=== PATIENT | female | born 1945 | race Caucasian/White ===

== ENCOUNTER 2017-02-20 12:27 | Inpatient (IN) | payer OTHER ==
[~2017-02-20] VITALS: Ht 162.6 cm; Wt 82.6 kg
[~2017-02-20 12:27] MED LIST: AMITRIPTYLINE H25 MG PO; BENAZEPRIL HYDR20 M1 PO; CELEXA40 MG PO; CLONAZEPAM0.5 MG PO; HYDROCHLOROTHIA25 MG PO; PANTOPRAZOLE SO40 M1 PO; RANITIDINE HCL150 M1 PO; SIMVASTATIN20 M1 PO; TRAZODONE50 M1 PO
[2017-02-20 14:53] LABS: BASOPHIL % 0.4 % (0-2); PLATELET COUNT 188 x10^3mcL (130-400); RED CELL DISTRIBUTION WIDTH 13.8 % (11.5-14.5)
[2017-02-20 15:01] LABS: CALCIUM 8.5 mg/dL (8.5-10.1); CARBON DIOXIDE 31.4 mmol/L (21-32); CHLORIDE SERUM 98 mmol/L (98-107); CREATININE SERUM 0.8 mg/dL (0.6-1.0); GLUCOSE SERUM 132 mg/dL (74-106); POTASSIUM SERUM 3.5 mmol/L (3.5-5.1); SODIUM SERUM 135 mmol/L (136-145)
[2017-02-20 15:07] LABS: ALBUMIN 4.1 g/dL (3.4-5.0); ALKALINE PHOSPHATASE 95 U/L (46-116); ALT/SGPT 46 U/L (14-59); AST/SGOT 28 U/L (15-37); BILIRUBIN TOTAL 0.4 mg/dL (0.20-1.00)
[2017-02-20 15:16] LABS: LIPASE 3443 IU/L (73-393)
[2017-02-20] MEDS ORDERED: MOT600 PO (16:38)
[2017-02-20 17:22] LABS: CHOLESTEROL/HDL RATIO 3.8; MAGNESIUM 2.2 mg/dL (1.8-2.4)
[2017-02-20 17:24] LABS: T3 TOTAL 1.02 ng/mL
[2017-02-20 17:25] VITALS: BP 110/69
[2017-02-20 17:29] LABS: FREE T4 0.79 ng/dL (0.76-1.46); FREE THYROXINE INDEX 2.4 ug/dL (1.4-4.5); T4(THYROXINE) 7.9 ug/dL (4.7-13.3)
[2017-02-20 17:30] VITALS: Ht 162.6 cm; Wt 82.6 kg
[2017-02-20] MEDS ORDERED: METFORMIN HCL850 MG PO (19:41)
[2017-02-20 21:54] VITALS: BP 98/46
[2017-02-21 05:50] VITALS: BP 112/61
[2017-02-21 06:07] LABS: BASOPHIL % 0.3 % (0-2); PLATELET COUNT 158 x10^3mcL (130-400); RED CELL DISTRIBUTION WIDTH 14.1 % (11.5-14.5)
[2017-02-21 06:16] LABS: CALCIUM 7.9 mg/dL (8.5-10.1); CARBON DIOXIDE 31.3 mmol/L (21-32); CHLORIDE SERUM 98 mmol/L (98-107); CREATININE SERUM 0.7 mg/dL (0.6-1.0); GLUCOSE SERUM 129 mg/dL (74-106); PHOSPHOROUS 2.9 mg/dL (2.5-4.9); POTASSIUM SERUM 3.5 mmol/L (3.5-5.1); SODIUM SERUM 133 mmol/L (136-145)
[2017-02-21 09:25] VITALS: BP 103/61
[2017-02-21 14:24] VITALS: BP 133/70
[2017-02-21 17:27] LABS: microscopic required? YES; urine erythrocyte TRACE (NEGATIVE)
[2017-02-21 17:35] VITALS: BP 132/71
[2017-02-21 17:43] LABS: AMPHETAMINE QUAL UR NONE DETECTED (NEG <=1000)
[2017-02-21 20:40] VITALS: BP 125/70
[2017-02-22 06:18] VITALS: BP 119/53
[2017-02-22 07:13] LABS: BASOPHIL % 0.5 % (0-2); PLATELET COUNT 156 x10^3mcL (130-400)
[2017-02-22 07:33] LABS: CALCIUM 7.9 mg/dL (8.5-10.1); CARBON DIOXIDE 32.9 mmol/L (21-32); CHLORIDE SERUM 104 mmol/L (98-107); CREATININE SERUM 0.7 mg/dL (0.6-1.0); GLUCOSE SERUM 118 mg/dL (74-106); MAGNESIUM 2.1 mg/dL (1.8-2.4); PHOSPHOROUS 2.5 mg/dL (2.5-4.9); POTASSIUM SERUM 3.8 mmol/L (3.5-5.1); SODIUM SERUM 139 mmol/L (136-145)
[2017-02-22 09:07] VITALS: BP 135/73
[2017-02-22 17:30] VITALS: BP 136/79
[2017-02-22 20:25] VITALS: BP 122/67
[2017-02-23 05:11] VITALS: BP 125/63
[2017-02-23] MEDS ORDERED: LEVAQUIN750 MG PO (05:52)
[2017-02-23] MEDS ORDERED: LAC PO (05:53)
[2017-02-23 06:55] LABS: BASOPHIL % 0.4 % (0-2); PLATELET COUNT 162 x10^3mcL (130-400); RED CELL DISTRIBUTION WIDTH 13.9 % (11.5-14.5)
[2017-02-23 07:23] LABS: CALCIUM 7.6 mg/dL (8.5-10.1); CARBON DIOXIDE 31.9 mmol/L (21-32); CHLORIDE SERUM 105 mmol/L (98-107); CREATININE SERUM 0.6 mg/dL (0.6-1.0); GLUCOSE SERUM 107 mg/dL (74-106); MAGNESIUM 1.8 mg/dL (1.8-2.4); PHOSPHOROUS 2.5 mg/dL (2.5-4.9); POTASSIUM SERUM 3.7 mmol/L (3.5-5.1); SODIUM SERUM 142 mmol/L (136-145)
[2017-02-23 08:56] VITALS: BP 121/70
[2017-02-23] MEDS ORDERED: PAN PO (09:54)
[2017-02-23 11:01] VITALS: BP 121/70
== END 2017-02-23 13:34 | disposition home or self-care (01) | DRG 642 ==
LOC: ED 12:27 → MU 16:06 → DU 16:06 → MU 02-22 09:38
PROVIDERS: Emergency Medicine; Family Medicine; ADMIT Family Medicine
DX: E78.1 Pure hyperglyceridemia (principal); K85.90 Acute pancreatitis without necrosis or infection, unspecified; K86.1 Other chronic pancreatitis; E87.1 Hypo-osmolality and hyponatremia; N39.0 Urinary tract infection, site not specified; E11.65 Type 2 diabetes mellitus with hyperglycemia; E11.51 Type 2 diabetes mellitus with diabetic peripheral angiopathy without gangrene; K57.90 Diverticulosis of intestine, part unspecified, without perforation or abscess without bleeding; K75.81 Nonalcoholic steatohepatitis (NASH); K21.9 Gastro-esophageal reflux disease without esophagitis; I10 Essential (primary) hypertension; E78.5 Hyperlipidemia, unspecified; D53.9 Nutritional anemia, unspecified; F41.9 Anxiety disorder, unspecified; F32.9 Major depressive disorder, single episode, unspecified; Z79.84 Long term (current) use of oral hypoglycemic drugs; Z68.30 Body mass index [BMI] 30.0-30.9, adult; Z86.73 Personal history of transient ischemic attack (TIA), and cerebral infarction without residual deficits; Z87.891 Personal history of nicotine dependence
CPT/HCPCS: 82962; 83880; 84439; J0696; J1170; J1885; J2270; J2405; J3490; J7030; Q0092; Q0162

== ENCOUNTER 2017-10-24 16:17 | Inpatient (IN) | payer OTHER ==
[~2017-10-24] VITALS: Ht 162.6 cm; Wt 76.9 kg
[~2017-10-24 16:17] MED LIST changes: +LAC PO; +LEVAQUIN750 MG PO; +METFORMIN HCL850 MG PO; +METFORMIN850 M1 GT; +METOPROLOL TART25 M1 PO; +MOT600 PO; +PAN PO
[2017-10-24 17:07] LABS: CALCIUM 9.7 mg/dL (8.5-10.1); CARBON DIOXIDE 26.2 mmol/L (21-32); CHLORIDE SERUM 100 mmol/L (98-107); CREATININE SERUM 0.9 mg/dL (0.6-1.0); GLUCOSE SERUM 150 mg/dL (74-106); POTASSIUM SERUM 3.6 mmol/L (3.5-5.1); SODIUM SERUM 139 mmol/L (136-145)
[2017-10-24 17:08] LABS: BASOPHIL % 0.9 % (0-2); PLATELET COUNT 207 x10^3mcL (130-400)
[2017-10-24 17:13] LABS: ALBUMIN 4.8 g/dL (3.4-5.0); ALKALINE PHOSPHATASE 96 U/L (46-116); ALT/SGPT 47 U/L (14-59); AST/SGOT 38 U/L (15-37); BILIRUBIN TOTAL 0.41 mg/dL (0.20-1.00)
[2017-10-24 17:15] LABS: TOTAL PROTEIN, SERUM 8.9 g/dL (6.4-8.2)
[2017-10-24 18:22] LABS: AMYLASE 2236 U/L (25-115)
[2017-10-24 19:26] LABS: MAGNESIUM 2.2 mg/dL (1.8-2.4); PHOSPHOROUS 3.5 mg/dL (2.5-4.9)
[2017-10-24 19:36] LABS: T3 TOTAL 1.2 ng/mL
[2017-10-24 19:38] LABS: LIPASE 53873 IU/L (73-393)
[2017-10-24 19:49] LABS: CHOLESTEROL/HDL RATIO 3.2
[2017-10-24 20:01] LABS: FREE THYROXINE INDEX 2.5 ug/dL (1.4-4.5); T4(THYROXINE) 9.1 ug/dL (4.7-13.3)
[2017-10-24 20:19] VITALS: BP 171/82
[2017-10-25 05:07] VITALS: BP 140/79
[2017-10-25 05:22] LABS: BASOPHIL % 0.2 % (0-2); PLATELET COUNT 163 x10^3mcL (130-400); RED CELL DISTRIBUTION WIDTH 13.9 % (11.5-14.5)
[2017-10-25 05:34] LABS: CALCIUM 7.3 mg/dL (8.5-10.1); CARBON DIOXIDE 26.9 mmol/L (21-32); CHLORIDE SERUM 104 mmol/L (98-107); CREATININE SERUM 0.9 mg/dL (0.6-1.0); GLUCOSE SERUM 184 mg/dL (74-106); MAGNESIUM 1.7 mg/dL (1.8-2.4); POTASSIUM SERUM 3.3 mmol/L (3.5-5.1); SODIUM SERUM 141 mmol/L (136-145)
[2017-10-25 10:02] VITALS: BP 152/91
[2017-10-25 13:29] VITALS: BP 159/88
[2017-10-25 14:31] LABS: UA SPECIFIC GRAVITY 1.015 (1.005-1.035); microscopic required? YES; urine erythrocyte TRACE (NEGATIVE)
[2017-10-25 16:36] VITALS: BP 147/84
[2017-10-25 20:57] VITALS: BP 157/75
[2017-10-26 05:34] VITALS: BP 148/79
[2017-10-26 06:05] LABS: BASOPHIL % 0.1 % (0-2); PLATELET COUNT 142 x10^3mcL (130-400)
[2017-10-26 06:25] LABS: CALCIUM 6.3 mg/dL (8.5-10.1); CARBON DIOXIDE 28.3 mmol/L (21-32); CREATININE SERUM 0.8 mg/dL (0.6-1.0); GLUCOSE SERUM 145 mg/dL (74-106); MAGNESIUM 2.5 mg/dL (1.8-2.4); PHOSPHOROUS 2.7 mg/dL (2.5-4.9)
[2017-10-26 06:39] LABS: AMYLASE 626 U/L (25-115)
[2017-10-26 06:49] LABS: RED CELL DISTRIBUTION WIDTH 14.6 % (11.5-14.5)
[2017-10-26 08:18] VITALS: BP 136/80
[2017-10-26 08:26] LABS: LIPASE 4097 IU/L (73-393)
[2017-10-26 09:05] LABS: CHLORIDE SERUM 104 mmol/L (98-107); SODIUM SERUM 140 mmol/L (136-145)
[2017-10-26 13:02] VITALS: BP 147/87
[2017-10-26 16:26] VITALS: BP 150/85
[2017-10-26 18:52] VITALS: BP 133/70
[2017-10-26 20:00] VITALS: BP 155/80
[2017-10-27 05:31] VITALS: BP 123/65
[2017-10-27 05:55] VITALS: BP 135/66
[2017-10-27 08:51] VITALS: BP 131/58
[2017-10-27 10:37] LABS: BASOPHIL % 0.5 % (0-2); CALCIUM 6.8 mg/dL (8.5-10.1); CARBON DIOXIDE 30.3 mmol/L (21-32); CHLORIDE SERUM 100 mmol/L (98-107); CREATININE SERUM 0.6 mg/dL (0.6-1.0); GLUCOSE SERUM 138 mg/dL (74-106); MAGNESIUM 2.3 mg/dL (1.8-2.4); PLATELET COUNT 133 x10^3mcL (130-400); POTASSIUM SERUM 3.1 mmol/L (3.5-5.1); RED CELL DISTRIBUTION WIDTH 14.4 % (11.5-14.5); SODIUM SERUM 136 mmol/L (136-145)
[2017-10-27 15:49] VITALS: BP 132/69
[2017-10-27 18:33] VITALS: BP 129/69
[2017-10-27 21:34] VITALS: BP 121/52
[2017-10-28 05:48] VITALS: BP 112/81
[2017-10-28 09:02] VITALS: BP 141/72
[2017-10-28 12:30] VITALS: BP 169/79
[2017-10-28 17:37] VITALS: BP 160/87
[2017-10-28 20:47] VITALS: BP 151/78
[2017-10-29 05:32] VITALS: BP 140/70
[2017-10-29 06:12] LABS: BASOPHIL % 0.2 % (0-2); PLATELET COUNT 165 x10^3mcL (130-400); RED CELL DISTRIBUTION WIDTH 14.1 % (11.5-14.5)
[2017-10-29 06:49] LABS: CALCIUM 7.9 mg/dL (8.5-10.1); CARBON DIOXIDE 33.8 mmol/L (21-32); CHLORIDE SERUM 95 mmol/L (98-107); CREATININE SERUM 0.6 mg/dL (0.6-1.0); GLUCOSE SERUM 145 mg/dL (74-106); MAGNESIUM 2.1 mg/dL (1.8-2.4); SODIUM SERUM 136 mmol/L (136-145)
[2017-10-29 07:19] LABS: POTASSIUM SERUM 2.3 mmol/L (3.5-5.1)
[2017-10-29 08:20] VITALS: BP 139/91
[2017-10-29 11:57] LABS: ALKALINE PHOSPHATASE 121 U/L (46-116); ALT/SGPT 40 U/L (14-59); AST/SGOT 34 U/L (15-37); BILIRUBIN TOTAL 0.72 mg/dL (0.20-1.00); CALCIUM 8.1 mg/dL (8.5-10.1); CARBON DIOXIDE 34.8 mmol/L (21-32); CHLORIDE SERUM 95 mmol/L (98-107); CREATININE SERUM 0.7 mg/dL (0.6-1.0); GLUCOSE SERUM 146 mg/dL (74-106); LIPASE 159 IU/L (73-393); SODIUM SERUM 136 mmol/L (136-145); TOTAL PROTEIN, SERUM 6.7 g/dL (6.4-8.2)
[2017-10-29 12:00] LABS: ALBUMIN 2.8 g/dL (3.4-5.0); POTASSIUM SERUM 2.2 mmol/L (3.5-5.1)
[2017-10-29 13:54] VITALS: BP 154/90
[2017-10-29 18:20] VITALS: BP 155/82
[2017-10-29 20:27] LABS: CALCIUM 8.3 mg/dL (8.5-10.1); CARBON DIOXIDE 34.7 mmol/L (21-32); CHLORIDE SERUM 98 mmol/L (98-107); CREATININE SERUM 0.6 mg/dL (0.6-1.0); GLUCOSE SERUM 131 mg/dL (74-106); POTASSIUM SERUM 3.3 mmol/L (3.5-5.1); SODIUM SERUM 137 mmol/L (136-145)
[2017-10-29 20:48] VITALS: BP 168/94
[2017-10-30 05:23] VITALS: BP 142/68
[2017-10-30 06:10] LABS: BASOPHIL % 0.5 % (0-2); PLATELET COUNT 200 x10^3mcL (130-400); RED CELL DISTRIBUTION WIDTH 14.4 % (11.5-14.5)
[2017-10-30 06:32] LABS: CALCIUM 7.6 mg/dL (8.5-10.1); CARBON DIOXIDE 31.5 mmol/L (21-32); CHLORIDE SERUM 100 mmol/L (98-107); CREATININE SERUM 0.6 mg/dL (0.6-1.0); GLUCOSE SERUM 157 mg/dL (74-106); MAGNESIUM 1.8 mg/dL (1.8-2.4); PHOSPHOROUS 1.8 mg/dL (2.5-4.9); POTASSIUM SERUM 3.1 mmol/L (3.5-5.1); SODIUM SERUM 138 mmol/L (136-145)
[2017-10-30] MEDS ORDERED: GOOD SENSE ASPI81 M3 PO (08:29)
[2017-10-30 08:38] VITALS: BP 155/85
[2017-10-30 13:28] VITALS: BP 159/84
[2017-10-30 14:30] LABS: CALCIUM 8.7 mg/dL (8.5-10.1); CHLORIDE SERUM 99 mmol/L (98-107); CREATININE SERUM 0.6 mg/dL (0.6-1.0); GLUCOSE SERUM 151 mg/dL (74-106); POTASSIUM SERUM 3.6 mmol/L (3.5-5.1); SODIUM SERUM 136 mmol/L (136-145)
[2017-10-30 17:15] VITALS: BP 127/82
[2017-10-30 19:43] VITALS: Ht 162.6 cm; Wt 76.9 kg
== END 2017-10-30 19:52 | disposition home or self-care (01) | DRG 438 ==
LOC: ED 16:17 → DU 19:01
PROVIDERS: Emergency Medicine; General Practice; Internal Medicine
DX: K85.90 Acute pancreatitis without necrosis or infection, unspecified (principal); E43 Unspecified severe protein-calorie malnutrition; K86.1 Other chronic pancreatitis; E11.65 Type 2 diabetes mellitus with hyperglycemia; E87.6 Hypokalemia; E83.42 Hypomagnesemia; I10 Essential (primary) hypertension; K21.9 Gastro-esophageal reflux disease without esophagitis; K59.00 Constipation, unspecified; F32.9 Major depressive disorder, single episode, unspecified; E78.5 Hyperlipidemia, unspecified; E78.00 Pure hypercholesterolemia, unspecified; Z68.30 Body mass index [BMI] 30.0-30.9, adult; Z87.891 Personal history of nicotine dependence; Z79.84 Long term (current) use of oral hypoglycemic drugs; Z86.73 Personal history of transient ischemic attack (TIA), and cerebral infarction without residual deficits
CPT/HCPCS: 82962; 83880; 84439; C9113; J1170; J1885; J2270; J2405; J2550; J3010; J3475; J3480; J7030; J7042; Q0092; Q9966; Q9967